=== PATIENT | male | born 2000 | race Caucasian/White ===

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

== ENCOUNTER 2023-04-06 18:52 | Emergency (ER) | payer BC, OTHER ==
[2023-04-06 19:24] VITALS: BP 133/75; TEMP 98.1; O2SAT 99
[2023-04-06] MEDS ORDERED: NS 1,000 ML IV ONE (19:35)
[2023-04-06 20:17] LABS: BASO # 0.1 10^3/uL (0.0-0.2); BASO % 0.8 % (0.0-1.0); EOS # 0.2 10^3/uL (0.0-0.5); EOS % 1.9 % (0.0-3.0); HEMATOCRIT 44.8 % (42.0-52.0); HEMOGLOBIN 15.4 g/dl (13.5-17.5); LYMPH # 1.7 10^3/uL (1.5-5.0); LYMPH % 14.1 % (24.0-44.0); MEAN CORPUSCULAR HEMOGLOBIN 29.8 pg (27.0-33.0); MEAN CORPUSCULAR HGB CONC 34.4 g/dl (32.0-36.5); MEAN CORPUSCULAR VOLUME 86.7 fl (80.0-96.0); MONO # 0.8 10^3/uL (0.0-0.8); MONO % 6.1 % (2.0-8.0); NEUTROPHILS # 9.5 10^3/uL (1.5-8.5); NEUTROPHILS % 76.8 % (36.0-66.0); PLATELET COUNT, AUTOMATED 237 10^3/uL (150-450); RED BLOOD COUNT 5.17 10^6/uL (4.30-6.10); WHITE BLOOD COUNT 12.4 10^3/uL (4.0-10.0)
[2023-04-06 20:31] LABS: BLOOD UREA NITROGEN 8 MG/DL (9-23); CALCIUM LEVEL 7.9 MG/DL (8.5-10.1); CARBON DIOXIDE LEVEL 24 MMOL/L (20-31); CHLORIDE LEVEL 111 MMOL/L (98-107); GLUCOSE, FASTING 86 MG/DL (60-100); POTASSIUM SERUM 5.3 MMOL/L (3.5-5.1); SODIUM LEVEL 142 MMOL/L (136-145)
[2023-04-06] MEDS ORDERED: KETOROLAC 30 MG/ML 1ML VIAL IV ONE (20:50)
[2023-04-06 21:04] LABS: CK-MB VALUE MASS < 1.0 NG/ML (<3.6); CPK CREATINE PHOSPHOKINASE 110 U/L (46-171)
[2023-04-06 21:12] LABS: MAGNESIUM LEVEL 1.8 MG/DL (1.8-2.4)
[2023-04-06 21:51] LABS: AMPHETAMINES LEVEL URINE NEGATIVE (NEGATIVE); BARBITURATES URINE NEGATIVE (NEGATIVE); BENZODIAZEPINES URINE NEGATIVE (NEGATIVE); COCAINE METABOLITE URINE NEGATIVE (NEGATIVE); METHADONE URINE NEGATIVE (NEGATIVE); OPIATES URINE NEGATIVE (NEGATIVE); PHENCYCLIDINE URINE NEGATIVE (NEGATIVE)
[2023-04-06 21:52] LABS: CANNABINOIDS URINE POSITIVE (NEGATIVE)
[2023-04-06] MEDS ORDERED: HOLTER MONITOR XX (22:01)
== END 2023-04-06 22:24 | disposition home or self-care (01) ==
LOC: M ED 18:52
DX: R55 Syncope and collapse (principal); F12.10 Cannabis abuse, uncomplicated; I45.10 Unspecified right bundle-branch block; F10.10 Alcohol abuse, uncomplicated
CPT/HCPCS: 70450; 71045; 72125; 80048; 80307; 82550; 82553; 83735; 84484; 85025; 87486; 87581; 87633; 87798; 93005; 96361; 96374; 99284; J1885